=== PATIENT | female | born 2000 | race Caucasian/White ===

== ENCOUNTER 2023-07-22 08:57 | Emergency (ER) | payer SELFPAY ==
[2023-07-22 09:00] VITALS: BP 131/82; PULSE 99; RESP 16; TEMP 36.2; O2SAT 100; BMI 19.2
--- NOTE | 2023-07-22 09:48 | EX.ED.DYSGE1 ---
HPI History of Present Illness Chief Complaint: Anxiety Informant: patient Narrative Narrative: 23-year-old female presenting to the emergency room with nausea vomiting diarrhea. Patient states the diarrhea began yesterday followed by vomiting. She states she cannot get her nausea under control. She states she was seen in emergency room in [place] where she lives. She is currently in [facility]. She states at that time in June she was told it could be cannabis hyperemesis syndrome and she has not had any cannabis since this time. Patient states that she had diarrhea through most of the day yesterday. She has been unable to get the nausea under control. She states she believes that her symptoms are related to her anxiety. She started Lexapro through her [employer] and took her first dose of 10 mg last evening with dinner. She had chicken in the [employer] and states that her friend does not have any symptoms. No reported fevers. Patient does wonder about a anxiety connection with her abdominal symptoms. She states she has been under a lot of stress having recently started a new job this week. [facility] Medical History (Updated 07/22/23 @ 12:[address] Vinod Barrientos DO) Anxiety Depression Home Medications alprazolam 0.5 mg tablet 0.5 mg PO BID PRN anxiety #10 tabs 07/22/23 [Rx Last Taken Unknown] hydrocodone-acetaminophen 5-325mg 5mg-325mg 1 tab PO Q6H PRN PRN Pain 3 days #12 TABLETS 07/22/23 [Rx Last Taken Unknown] promethazine 25 mg tablet 25 mg PO Q6H PRN PRN Nausea #20 TABLETS 07/22/23 [Rx Last Taken Unknown] Allergy/AdvReac Type Severity Reaction Status Date / Time cephalexin Allergy Mild Hives Verified 07/22/23 08:59 phenazopyridine Allergy Mild Hives Verified 07/22/23 08:59 [From Pyridium] Social History Smoking Status: Never smoker ROS ROS ED Constitutional Constitutional ED: Denies chills, fever(s) or weight loss Eyes Eyes: Denies change in vision or diplopia ENT ENT ED: Denies ear pain, rhinorrhea or sore throat Cardiovascular Cardiovascular: Reports palpitations and racing heartbeat; Denies chest pain or orthopnea Respiratory/Chest Respiratory/Chest: Denies cough, dyspnea or orthopnea Gastrointestinal Gastrointestinal: Reports diarrhea, nausea and vomiting; Denies abdominal pain Genitourinary Genitourinary ED: Denies dysuria, hematuria or urinary frequency Musculoskeletal Musculoskeletal: Denies arthralgias or myalgias Integumentary Denies abscess or rash Neurologic Neurologic: Reports other Details: Insomnia ; Denies headache(s) or weakness Psychiatric Psychiatric: Reports anxiety; Denies depression, suicidal ideation or suicidal thoughts Endocrine Endocrinology: Denies polydipsia, polyphagia or polyuria Allergic/Immunologic Allergic/Immunologic ED: Denies mouth swelling, tongue swelling or urticaria EXAM Physical Exam Const Vital Signs: 07/22/23 09:00 07/22/23 09:58 07/22/23 10:42 Temperature 97.2 F L Temperature Source Temporal Pulse Rate 99 85 Respiratory Rate 16 16 Respiratory Effort Normal Non-Labored Respiratory Pattern Normal Blood Pressure 131/82 H 111/66 Blood Pressure Mean 98 81 Pulse Ox 100 100 Oxygen Delivery Method Room Air Room Air 07/22/23 12:52 Temperature 97.6 F L Temperature Source Pulse Rate 78 Respiratory Rate 16 Respiratory Effort Respiratory Pattern Blood Pressure 118/64 Blood Pressure Mean 82 Pulse Ox 99 Oxygen Delivery Method Positive well nourished and well developed General Appearance ED: well developed HEENT Reports normocephalic, head/scalp atraumatic and moist mucous membranes Eyes PERRL and EOMs intact bilaterally Neck no lymphadenopathy, supple and no JVD Resp normal respiratory effort and clear to auscultation bilaterally Cardio regular rate, regular rhythm and no murmurs Rate: tachycardic GI normal to inspection, nondistended, normoactive bowel sounds and non-tender Palpation: soft Back/Spine no CVA tenderness and normal ROM Extremity normal to inspection General Extremety ED: Negative for edema General Extremity: Negative for edema Neuro oriented x3 and CN's II-XII intact bilaterally Sensorium / Orientation: alert Motor Exam: strength 5/5 throughout Psych Mood & Affect: anxious; Negative for depressed or tearful Skin no rashes or lesions noted and no wounds MDM MDM MDM Narrative Medical decision making narrative: White count 7.3 hemoglobin 14.5 platelet count is 172. Chloride 108 creatinine 0.68 total bilirubin 1.1 with direct bilirubin 0.25 test is negative lipase is normal urinalysis is 150 ketones but no obvious infection. Patient received IV fluids she also received Toradol and Zofran. Patient is feeling improved. Will write for to have some promethazine as she has Zofran at home it was not helping also write for a few hydrocodone and some alprazolam for anxiety. This could certainly be all anxiety driven with irritable bowel could also be cannabis hyperemesis or could be simple viral infection. I would recommend following up with primary care when she returns to [facility] and possibly following up with gastroenterology. Patient is comfortable with this plan return if worsening or concerns History & Record Review Discussion w/independent historian: Patient and Friend Lab Data Attestation: I reviewed the patient's lab results. Labs: Laboratory Results - last 24 hr 07/22/23 07/22/23 10:00 10:40 WBC 7.3 RBC 4.71 Hgb 14.5 Hct 42.8 MCV 90.9 MCH 30.8 MCHC 33.9 RDW Std Deviation 42.5 RDW Coeff of Dat 12.9 Plt Count 172 MPV 12.8 H Immature Gran % (Auto) 0.300 Neut % (Auto) 80.0 H Lymph % (Auto) 13.8 L Coles % (Auto) 5.2 Eos % (Auto) 0.0 Baso % (Auto) 0.7 Absolute Neuts (auto) 5.9 Absolute Lymphs (auto) 1.01 Nucleated RBC % 0 Sodium 138 Potassium 3.8 Chloride 108 H Carbon Dioxide 24.0 Anion Gap 6 BUN 11 Creatinine 0.68 Estim Creat Clear Calc 120.80 Est GFR (MDRD) Af Amer 139 Est GFR (MDRD) Non-Af 115 BUN/Creatinine Ratio 16.2 Glucose 96 Calcium 10.2 H Total Bilirubin 1.10 H Direct Bilirubin 0.25 AST 11 L ALT 16 Alkaline Phosphatase 51 Total Protein 7.9 Albumin 4.6 Globulin 3.3 Lipase 36 Serum , Qual NEGATIVE Urine Color Yellow Urine Clarity Clear Urine pH 6.0 Ur Specific [place] 1.020 Urine Protein 15 H Urine Glucose (UA) Normal Urine Ketones 150 A* Urine Occult Blood Negative Urine Nitrite Negative Urine Bilirubin Negative Urine Urobilinogen Normal Ur Leukocyte Esterase 25 H Urine RBC 0 SEEN Urine WBC 0-5 SEEN Ur Squamous Epith Cells 0-5 SEEN Urine Bacteria 0 SEEN Urine Mucus 0 SEEN Discharge Plan Triage Chief Complaint: Anxiety ED Provider: Crumpton,Vinod Dx/Rx/DC Orders Clinical Impression: Nausea, vomiting, and diarrhea, Anxiety, Abdominal pain Instructions: ED Vomiting (Adult) Prescriptions: New hydrocodone-acetaminophen [hydrocodone-acetaminophen] 5-325 mg tablet 1 tab PO Q6H PRN PRN (Reason: Pain) 3 Days Qty: 12 0RF promethazine [promethazine] 25 mg tablet 25 mg PO Q6H PRN PRN (Reason: Nausea) Qty: 20 0RF alprazolam 0.5 mg tablet 0.5 mg PO BID PRN (Reason: anxiety) Qty: 10 0RF Primary Care Provider: Care Physician,No Primary Referrals: NOT,DEFINED [Non-Staff] - Activity Restrictions/Additional Instructions: I would recommend following up with primary care and gastroenterology when you return home. Disposition Disposition: Home, Self Care Discharge Date/Time: 07/22/23 12:53
[2023-07-22] MEDS: Ondansetron 4 MG/2 ML Vial IV (09:55)
[2023-07-22] MEDS: 0.9% Normal Saline (1000mL) 1,000 ML 1000 ML IV (09:55)
[2023-07-22] MEDS: LORazepam 2 MG/ML Syringe 1 MG IV (09:55)
[2023-07-22 10:16] LABS: Absolute Lymphocyte Count 1.01 X10^3/uL (0.83-4.51); Absolute Neutrophil Count 5.9 X10^3/uL (2.0-7.7); Basophil# 0.05 X10^3/uL; Basophil% 0.7 % (0-1); Hematocrit 42.8 % (37-47); Hemoglobin 14.5 g/dL (12.0-15.0); Lymphocyte # 1.01 X10^3/ul (0.83-4.51); Lymphocyte % 13.8 % (19-41); Mean Corp Hgb Conc 33.9 g/dL (32-36); Mean Corpuscular Hgb 30.8 pg (27.0-32.0); Mean Corpuscular Volume 90.9 fL (81-99); Mean Platelet Vol. 12.8 fl (6.2-12.0); Monocyte# 0.38 X10^3/uL; Monocyte% 5.2 % (0-10); NRBC Flagged by Analyzer 0 % (0-5); Neutrophil # 5.88 X10^3/uL (2.7-7.7); Platelet Count 172 K/mm3 (150-450); RBC Distribution Width CV 12.9 % (11.6-14.6); RBC Distribution Width SD 42.5 fl (35.1-43.9); Red Blood Count 4.71 M/mm3 (4.2-5.4); White Blood Count 7.3 K/mm3 (4.4-11.0)
[2023-07-22 10:42] VITALS: BP 111/66; PULSE 85; RESP 16; O2SAT 100
[2023-07-22 10:44] LABS: AST(SGOT) 11 U/L (15-37); Alanine Aminotransfer ALT/SGPT 16 U/L (13-56); Albumin, Serum 4.6 g/dL (3.2-5.0); Alkaline Phosphatase 51 U/L (45-117); Anion Gap 6 (5-15); BUN 11 mg/dL (7-18); BUN/Creat Ratio 16.2 RATIO (10-20); Bilirubin, Direct 0.25 mg/dL (0.00-0.30); Calcium,Total 10.2 mg/dL (8.5-10.1); Chloride 108 mmol/L (98-107); Creatinine, Serum 0.68 mg/dL (0.55-1.02); EST Glomerular Filtration Rate 115 mL/min (>60); Est Glom Filt Rate - Afr Amer 139 mL/min (>60); Globulin 3.3 g/dL (2.2-4.2); Glucose 96 mg/dL (74-106); Lipase 36 U/L (13-75); Potassium 3.8 mmol/L (3.5-5.1); Protein, Total 7.9 g/dL (6.4-8.2); Sodium Level 138 mmol/L (136-145)
[2023-07-22 10:48] LABS: Bacteria 0 SEEN /hpf (None Seen); Mucous, Urine 0 SEEN /hpf (<or=2+); Red Blood Cells-Urine 0 SEEN /hpf (0-5)
[2023-07-22 10:53] LABS: Internal QC Validated? YES +Cl - CLEAR BKGD
[2023-07-22 10:54] LABS: Pregnancy, Serum, hCG Quali. NEGATIVE Negative
[2023-07-22 10:56] LABS: Color, Urine Yellow (Yellow); Glucose, Dipstick Normal (Normal); Leukocyte Esterase-Dipstick 25 /ul (Negative); Nitrite-Dipstick Negative (Negative); Occult Blood-Urine Negative /ul (Negative); Protein-Dipstick 15 mg/dl (Negative); Urine Bilirubin Dipstick Negative (Negative); Urine Clarity Clear (Clear); Urine Urobilinogen Normal (Normal)
[2023-07-22 11:01] LABS: Ketone-Dipstick 150 mg/dl (Negative)
[2023-07-22 11:06] LABS: Squamous Epithelial Cells - UA 0-5 SEEN /hpf (5-10); White Blood Cells 0-5 SEEN /hpf (0-5)
[2023-07-22] MEDS: Ketorolac 30 MG/ML Syringe IV (11:07)
[2023-07-22 12:52] VITALS: BP 118/64; PULSE 78; RESP 16; TEMP 36.4; O2SAT 99
== END 2023-07-22 12:53 | disposition home or self-care (01) ==
PROVIDERS: Emergency Provider Emergency Medicine; Visit Provider Emergency Medicine
DX: R11.2 Nausea with vomiting, unspecified (principal); F41.9 Anxiety disorder, unspecified; F32.A Depression, unspecified; R19.7 Diarrhea, unspecified; R10.9 Unspecified abdominal pain; Z79.899 Other long term (current) drug therapy
CPT/HCPCS: 80048; 80076; 81001; 83690; 84703; 85025; 96361; 96374; 96375; 99284; J7030; A4216; J2405